=== PATIENT | female | born 2000 | race Hispanic/Latino ===

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

== ENCOUNTER 2018-03-09 09:20 | Emergency (ER) | payer MEDICAID ==
[2018-03-09 09:20] VITALS: BMI 21.9
--- NOTE | 2018-03-09 09:39 | ED PDOC ---
Arrival/HPI - General Historian: Patient - History of Present Illness Narrative History of Present Illness (Text): 03/09/18 09:25 17 y/o female, no significant pmh, nkda, c/o feeling chest pain/shortness of breath started early this morning. Pt. stated that she's a chronic smoker, stopped smoking about 2 months ago, associated with on and off coughing x 2 months, went to take a "hot" shower early this morning around 3am and started to feel she can't breath in the shower, improved when the window is open. Pt. stated that she has no nausea/vomiting, no fever or chills, no night sweat, no palpitation, no other medical or psychological complaints. Past Medical History - Provider Review Nursing Documentation Reviewed: Yes - Past History Past History: No Previous - Infectious Disease Hx of Infectious Diseases: None - Tetanus Immunization Tetanus Immunization: Unknown - Cardiac Hx Cardiac Disorders: No - Pulmonary Hx Respiratory Disorders: No - Neurological HX Cerebrovascular Accident: No Hx Seizures: No - Hematological/Oncological Hx Blood Disorders: No - Integumentary Hx Dermatological Disorder: No - Musculoskeletal/Rheumatological Hx Musculoskeletal Disorders: No - Gastrointestinal Hx Gastrointestinal Disorders: No - Genitourinary/Gynecological Hx Genitourinary Disorders: No - Psychiatric Hx Psychophysiologic Disorder: No Hx Substance Use: No - Past Surgical History Past Surgical History: No Previous - Anesthesia Hx Anesthesia: No - Suicidal Assessment Feels Threatened In Home Enviroment: No Family/Social History - Physician Review Nursing Documentation Reviewed: Yes Family/Social History: Unknown Family HX Smoking Status: Light Smoker < 10 Cigarettes Daily Hx Alcohol Use: No Hx Substance Use: No Hx Substance Use Treatment: No Allergies/Home Meds Allergies/Adverse Reactions: Allergies No Known Allergies Allergy (Verified 07/22/17 12:11) Review of Systems - Review of Systems Constitutional: absent: Fatigue, Fevers Eyes: absent: Vision Changes ENT: absent: Hearing Changes Respiratory: SOB, Cough, Sputum Cardiovascular: Chest Pain Gastrointestinal: absent: Abdominal Pain, Diarrhea, Nausea, Vomiting Musculoskeletal: absent: Arthralgias, Back Pain Skin: absent: Rash, Pruritis, Skin Lesions Neurological: absent: Headache Psychiatric: Anxiety. absent: Depression Physical Exam Vital Signs Reviewed: Yes Temperature: Afebrile Blood Pressure: Normal Pulse: Regular Respiratory Rate: Normal Appearance: Positive for: Well-Appearing, Non-Toxic Pain Distress: Mild Mental Status: Positive for: Alert and Oriented X 3 - Systems Exam Head: Present: Atraumatic, Normocephalic Pupils: Present: PERRL Extroacular Muscles: Present: EOMI Conjunctiva: Present: Normal Mouth: Present: Moist Mucous Membranes Neck: Present: Normal Range of Motion Respiratory/Chest: Present: Clear to Auscultation, Good Air Exchange, Rhonchi (m ild rhonchi that clear with coughing). No: Respiratory Distress, Accessory Muscle Use, Wheezes, Decreased Breath Sounds, Rales, Retracting, Tachypneic, Tender to Palpation Cardiovascular: Present: Regular Rate and Rhythm, Normal S1, S2. No: Murmurs Abdomen: No: Tenderness, Distention, Peritoneal Signs Back: Present: Normal Inspection. No: CVA Tenderness, Midline Tenderness Upper Extremity: Present: Normal Inspection. No: Cyanosis, Edema Lower Extremity: Present: Normal Inspection. No: Edema Neurological: Present: GCS=15, CN II-XII Intact, Speech Normal, Motor Func Grossly Intact, Gait Normal, Memory Normal Skin: Present: Warm, Dry, Normal Color. No: Rashes Psychiatric: Present: Alert, Oriented x 3, Normal Insight, Anxious Medical Decision Making ED Course and Treatment: 03/09/18 09:45 Pneumonia vs. Bronchitis vs. PE vs Cardiac arrythmia vs. axiety -labs -ekg -cxr -IVF/ativan -Observe and reassess 03/09/18 11:13 -Dimer 383, CTA added 03/09/18 12:40 -Urine hcg is negative. -EKG: SR @ 70 BPM with sinus arrhythmia, no ST elevation or depression, no T wave inversion -Chest xray show No active disease. -CTA chest: The study is limited for evaluation of pulmonary emboli on as there is suboptimal opacification of the pulmonary arterial circulation additionally, the study is further limited by cardiac motion. -PERC is negative. -Labs show no acute findings -Mg within normal limit -BNP within normal limit -Trop within normal limit -Thyroid profile within normal limit -UA show no UTI. -UDS show +cannabinoid and +benzo -I discussed with the labs/radiology results with the family, pt. is asymptomatic, feeling completely relief, request to be discharged home but advised to come back if the symptoms resume or return. Pt. and family have no other questions for me. -I discussed the result with the ER attending dr. hoskins/labs/radiology studies and vitals, he recommend that there is no obvious PE and no risk factors, advised on discharge home with return to the ER for any new or worsening signs or symptoms. -Discharge home with education on bed rest, stay hydrated, follow up with your own pmd and split and drum room supervisor/group therapist within 2 days, return to the ER for any new or worsening signs or symptoms, return to the ER for any new or worsening signs or symptoms. - RAD Interpretation Radiology Orders: Chest xray: Date of service: 03/09/2018 HISTORY: chest tightness COMPARISON: Comparison chest dated 01/15/2014 TECHNIQUE: Chest PA and lateral FINDINGS: LUNGS: No active pulmonary disease. PLEURA: No significant pleural effusion identified. No pneumothorax apparent. CARDIOVASCULAR: No aortic atherosclerotic calcification present. Normal cardiac size. No pulmonary vascular congestion. OSSEOUS STRUCTURES: No significant abnormalities. VISUALIZED UPPER ABDOMEN: Normal. OTHER FINDINGS: None. IMPRESSION: No active disease. CTA Chest: Date of service: 03/09/2018 PROCEDURE: CT Chest with contrast (Pulmonary Angiogram) HISTORY: Cough x 2 months. Shortness of breath and chest pain. Rule out PE. COMPARISON: Correlation made with. Concurrent chest radiograph. TECHNIQUE: Axial computed tomography images were obtained of the chest in the pulmonary arterial phase of enhancement. Coronal and sagittal reformatted images were created and reviewed. Intravenous contrast dose: 96 cc Omnipaque 350 contrast material Radiation dose: Total exam DLP = 145.66 mGy-cm. This CT exam was performed using one or more of the following dose reduction techniques: Automated exposure control, adjustment of the mA and/or kV according to patient size, and/or use of iterative reconstruction technique. FINDINGS: The study is limited for evaluation of pulmonary emboli on as there is suboptimal opacification of the pulmonary arterial circulation additionally, the study is further limited by cardiac motion. PULMONARY ARTERIES: The visualized pulmonary trunk, lobar, submental and proximal subsegmental branches of the pulmonary arteries are relatively well opacified with no definitive filling defects seen to suggest acute central pulmonary embolus. Localized filling defects seen within the SVC at the level of the azygos vein which is likely due to emptying of unopacified blood from the abdomen and lower extremities. AORTA: No acute findings. No thoracic aortic aneurysm. Ascending thoracic aorta measures approximately 2.4 cm and descending thoracic measures approximately 1.7 cm. No aortic atherosclerotic calcification or mural plaque present. LUNGS: Lung arredondo clear without focal consolidation. No evidence of parenchymal masses or nodules.. There appears to be some minimal linear scarring left lung base... PLEURAL SPACES: Unremarkable. No effusion or pneumothorax. HEART: Unremarkable. Heart size within range of normal. No significant pericardial effusion LYMPH NODES: No significant mediastinal or hilar Trachea midline and patent with no large central endoluminal lesions. Lymphadenopathy. BONES, CHEST WALL: The vertebral bodies intact with no evidence of acute or chronic compression fractures. No significant degenerative spondylosis. OTHER FINDINGS: Spleen exhibits heterogeneous contrast enhancement likely due to injection-scan timing. IMPRESSION: The study is limited for evaluation of pulmonary emboli on as there is suboptimal opacification of the pulmonary arterial circulation additionally, the study is further limited by cardiac motion. Liaison Inspection Laboratory Assistant: Radiologist - EKG Interpretation EKG Interpretation (Text): 03/09/18 09:50 SR @ 70 BPM with sinus arrhythmia, no ST elevation or depression, no T wave inversion Interpreted by ED Physician: Yes Type: 12 lead EKG Comparison: Com.w/previous EKG - PA / SOFTWARE RELEASE ENGINEER / Resident Statement /DO has reviewed & agrees with the documentation as recorded. Disposition/Present on Arrival - Present on Arrival Any Indicators Present on Arrival: No History of DVT/PE: No History of Uncontrolled Diabetes: No Urinary Catheter: No History of Decub. Ulcer: No History Surgical Site Infection Following: None - Disposition Have Diagnosis and Disposition been Completed?: Yes Diagnosis: Atypical chest pain, SOB (shortness of breath) Disposition: HOME/ ROUTINE Disposition Time: 12:42 Patient Plan: Discharge Condition: IMPROVED Discharge Instructions (ExitCare): Chest Pain (ED) Additional Instructions: -Discharge home with education on bed rest, stay hydrated, follow up with your own pmd and split and drum room supervisor/group therapist within 2 days, return to the ER for any new or worsening signs or symptoms, return to the ER for any new or worsening signs or symptoms. Referrals: Miky Romero MD [Staff Provider] - Follow up with primary Tenzin Dumont MD [Staff Provider] - Follow up with primary Forms: WORK NOTE
[2018-03-09 09:50] VITALS: RESP 18; TEMP 98.1; O2SAT 100
[2018-03-09 10:18] LABS: BASO # 0.02 K/mm3 (0.0-2.0); BASO % 0.2 % (0.0-3.0); EOS # 0.1 (0.0-0.7); EOS % 1.2 % (1.5-5.0); GRAN # 5.87 (1.4-6.5); GRAN % 62.4 % (50.0-68.0); HEMOGLOBIN 14.2 g/dL (12.0-16.0); LYMPH # 2.7 (1.2-3.4); LYMPH % 28.7 % (22.0-35.0); MEAN CORPUSCULAR HGB CONC 34.1 g/dl (31.0-37.0); MEAN PLATELET VOLUME 9.4 fl (7.0-11.0); MONO # 0.7 (0.1-0.6); MONO % 7.5 % (1.0-6.0); RBC 4.58 10^6/uL (3.5-6.1); RED CELL DISTRIBUTION WIDTH 12.6 % (11.5-14.5); WHITE BLOOD COUNT 9.4 10^3/uL (4.5-11.0)
[2018-03-09 10:26] LABS: ALB/GLOB RATIO 1.3 (1.1-1.8); ALBUMIN 4.3 g/dL (3.0-4.8); ALT/SGPT 20 U/L (7-56); AST/SGOT 24 U/L (14-36); BLOOD UREA NITROGEN 9 mg/dL (7-21); CALCIUM 9.5 mg/dL (8.4-10.5); GFR NON-AFRICAN AMERICAN > 60
[2018-03-09 10:27] LABS: ACETAMINOPHEN < 10.0 ug/ml (10.0-20.0); SALICYLATE < 1 mg/dL (2.0-20.0)
[2018-03-09 10:44] LABS: BARBITURATES, UR NEGATIVE (NEGATIVE); BENZODIAZEPINES, UR POSITIVE (NEGATIVE); OPIATES, UR NEGATIVE (NEGATIVE); PHENCYCLIDINE, UR NEGATIVE (NEGATIVE)
[2018-03-09 10:45] LABS: B-TYPE NATRIURETIC PEPTIDE 98.3 pg/mL (0-450); TROPONIN I < 0.01 ng/mL
[2018-03-09 10:49] LABS: FREE T4 0.85 ng/dL (0.78-2.19)
--- NOTE | 2018-03-09 11:01 | RAD ---
Date of service: 03/09/2018 HISTORY: chest tightness COMPARISON: Comparison chest dated 01/15/2014 TECHNIQUE: Chest PA and lateral FINDINGS: LUNGS: No active pulmonary disease. PLEURA: No significant pleural effusion identified. No pneumothorax apparent. CARDIOVASCULAR: No aortic atherosclerotic calcification present. Normal cardiac size. No pulmonary vascular congestion. OSSEOUS STRUCTURES: No significant abnormalities. VISUALIZED UPPER ABDOMEN: Normal. OTHER FINDINGS: None. IMPRESSION: No active disease.
[2018-03-09] MEDS ORDERED: Iohexol 350 MG/100 ML VIAL ONE (11:06)
[2018-03-09 11:31] LABS: URINE BILIRUBIN NEGATIVE (NEGATIVE); URINE BLOOD NEGATIVE (NEGATIVE); URINE GLUCOSE (UA) NEGATIVE (NEGATIVE); URINE LEUKOCYTE ESTERASE NEGATIVE Leu/uL (NEGATIVE); URINE PROTEIN 30 mg/dL (<30 mg/dL); URINE UROBILINOGEN 0.2 E.U./dL (<1 E.U./dL)
[2018-03-09 11:33] LABS: URINE APPEARANCE SL CLOUDY (CLEAR); URINE COLOR LIGHT YELLOW (YELLOW)
[2018-03-09 11:38] LABS: URINE BACTERIA MANY /hpf; URINE RBC 0 - 2 /hpf (0-2)
--- NOTE | 2018-03-09 12:18 | CT ---
Date of service: 03/09/2018 PROCEDURE: CT Chest with contrast (Pulmonary Angiogram) HISTORY: Cough x 2 months. Shortness of breath and chest pain. Rule out PE. COMPARISON: Correlation made with. Concurrent chest radiograph. TECHNIQUE: Axial computed tomography images were obtained of the chest in the pulmonary arterial phase of enhancement. Coronal and sagittal reformatted images were created and reviewed. Intravenous contrast dose: 96 cc Omnipaque 350 contrast material Radiation dose: Total exam DLP = 145.66 mGy-cm. This CT exam was performed using one or more of the following dose reduction techniques: Automated exposure control, adjustment of the mA and/or kV according to patient size, and/or use of iterative reconstruction technique. FINDINGS: The study is limited for evaluation of pulmonary emboli on as there is suboptimal opacification of the pulmonary arterial circulation additionally, the study is further limited by cardiac motion. PULMONARY ARTERIES: The visualized pulmonary trunk, lobar, submental and proximal subsegmental branches of the pulmonary arteries are relatively well opacified with no definitive filling defects seen to suggest acute central pulmonary embolus. Localized filling defects seen within the SVC at the level of the azygos vein which is likely due to emptying of unopacified blood from the abdomen and lower extremities. AORTA: No acute findings. No thoracic aortic aneurysm. Ascending thoracic aorta measures approximately 2.4 cm and descending thoracic measures approximately 1.7 cm. No aortic atherosclerotic calcification or mural plaque present. LUNGS: Lung arredondo clear without focal consolidation. No evidence of parenchymal masses or nodules.. There appears to be some minimal linear scarring left lung base... PLEURAL SPACES: Unremarkable. No effusion or pneumothorax. HEART: Unremarkable. Heart size within range of normal. No significant pericardial effusion LYMPH NODES: No significant mediastinal or hilar Trachea midline and patent with no large central endoluminal lesions. Lymphadenopathy. BONES, CHEST WALL: The vertebral bodies intact with no evidence of acute or chronic compression fractures. No significant degenerative spondylosis. OTHER FINDINGS: Spleen exhibits heterogeneous contrast enhancement likely due to injection-scan timing. IMPRESSION: The study is limited for evaluation of pulmonary emboli on as there is suboptimal opacification of the pulmonary arterial circulation additionally, the study is further limited by cardiac motion.
--- NOTE | 2018-03-09 12:41 | CARD ---
APPROVED REPORT Date of service: 03/09/2018 EKG Measurement Heart [id number] <Conclusion> Sinus rhythm with marked sinus arrhythmia Otherwise normal ECG
[2018-03-09 13:11] VITALS: BP 119/64; PULSE 68
== END 2018-03-09 12:59 | disposition home or self-care (01) ==
LOC: ED 09:20
DX: R07.89 Other chest pain (principal); R06.02 Shortness of breath; F17.210 Nicotine dependence, cigarettes, uncomplicated
CPT/HCPCS: 71046; 71275; 80053; 80320; 80324; 80329; 80345; 80346; 80349; 80353; 80358; 80361; 81001; 81025; 83735; 83880; 83992; 84439; 84443; 84484; 85025; 85378; 93005; 96374; 99284; J2060; Q9967